=== PATIENT | female | born 1950 | race Caucasian/White ===

== ENCOUNTER → 2017-06-14 | Outpatient (CLI) | payer BC | LOC: RAD 06-09 09:19 | DX: Z13.820 Encounter for screening for osteoporosis (principal); M85.80 Other specified disorders of bone density and structure, unspecified site ==

== ENCOUNTER → 2017-06-22 | Outpatient (CLI) | payer BC | LOC: MAMMO 13:42 | DX: Z12.31 Encounter for screening mammogram for malignant neoplasm of breast (principal) | CPT/HCPCS: G0202 ==

== ENCOUNTER → 2018-07-27 | Outpatient (CLI) | payer MEDICARE | LOC: MAMMO 08:30 | DX: Z12.31 Encounter for screening mammogram for malignant neoplasm of breast (principal) ==

== ENCOUNTER 2019-03-19 08:30 | Outpatient (RCR) | payer MEDICARE | END 2019-03-19 09:00 | LOC: PT 08:30 | DX: S83.512A Sprain of anterior cruciate ligament of left knee, initial encounter (principal) ==

== ENCOUNTER → 2019-07-10 | Outpatient (CLI) | payer MEDICARE | LOC: RAD 13:38 → MAMMO 14:30 | DX: Z13.820 Encounter for screening for osteoporosis (principal); M85.852 Other specified disorders of bone density and structure, left thigh ==

== ENCOUNTER → 2019-07-10 | Outpatient (CLI) | payer MEDICARE | LOC: MAMMO 13:38 | DX: Z12.31 Encounter for screening mammogram for malignant neoplasm of breast (principal) ==

== ENCOUNTER → 2020-06-16 | Outpatient (CLI) | payer MEDICARE | LOC: RAD 11:55 | DX: M48.02 Spinal stenosis, cervical region (principal); M48.8X2 Other specified spondylopathies, cervical region; M47.812 Spondylosis without myelopathy or radiculopathy, cervical region ==

== ENCOUNTER → 2020-08-13 | Outpatient (CLI) | payer MEDICARE | LOC: MAMMO 15:11 | DX: Z12.31 Encounter for screening mammogram for malignant neoplasm of breast (principal) ==

== ENCOUNTER → 2021-08-20 | Outpatient (CLI) | payer MEDICARE | LOC: MAMMO 08:30 | DX: Z12.31 Encounter for screening mammogram for malignant neoplasm of breast (principal) ==

== ENCOUNTER → 2021-08-20 | Outpatient (CLI) | payer MEDICARE | LOC: RAD 08:35 → MAMMO 09:15 | DX: Z13.820 Encounter for screening for osteoporosis (principal); M85.80 Other specified disorders of bone density and structure, unspecified site; Z78.0 Asymptomatic menopausal state ==

== ENCOUNTER → 2023-09-07 | Outpatient (CLI) | payer MEDICARE | LOC: MAMMO 11:00 | DX: Z12.31 Encounter for screening mammogram for malignant neoplasm of breast (principal); M85.80 Other specified disorders of bone density and structure, unspecified site ==

== ENCOUNTER → 2023-09-07 | Outpatient (CLI) | payer MEDICARE | LOC: RAD 11:11 → MAMMO 11:30 | DX: Z12.31 Encounter for screening mammogram for malignant neoplasm of breast (principal); M85.852 Other specified disorders of bone density and structure, left thigh ==

== ENCOUNTER 2023-10-24 14:15 | Outpatient (RCR) | payer MEDICARE | END 2023-11-20 | disposition home or self-care (01) | LOC: PT | DX: T84.84XD Pain due to internal orthopedic prosthetic devices, implants and grafts, subsequent encounter (principal); M79.671 Pain in right foot; Z98.890 Other specified postprocedural states ==

== ENCOUNTER 2023-11-22 08:00 | Outpatient (RCR) | payer MEDICARE | END 2023-12-21 | disposition home or self-care (01) | LOC: PT | DX: T84.84XA Pain due to internal orthopedic prosthetic devices, implants and grafts, initial encounter (principal); M79.671 Pain in right foot; Z98.890 Other specified postprocedural states ==

== ENCOUNTER → 2024-09-20 | Outpatient (CLI) | payer MEDICARE | LOC: MAMMO 10:30 | DX: Z12.31 Encounter for screening mammogram for malignant neoplasm of breast (principal) ==